=== PATIENT | female | born 1965 | race Caucasian/White ===

== ENCOUNTER 2019-12-20 08:38 | Emergency (ER) | payer OTHER, SELFPAY ==
[2019-12-20 08:49] VITALS: BP 133/84; PULSE 82; RESP 16; TEMP 36.6; O2SAT 99
--- NOTE | 2019-12-20 09:26 | ED.URI ---
HPI - URI/Sore Throat General Chief Complaint: Upper Respiratory Infection Stated Complaint: sore throat and ear ache Time Seen by Provider: 12/20/19 09:27 Source: patient and RN notes reviewed Mode of arrival: ambulatory Limitations: no limitations History of Present Illness HPI Narrative: 54-year-old female who presents to [facility] care with complaints of sore throat, ear pain, cough since . Patient denies any known fevers, chills or sweats, cough which is worse at night with some expectoration of phlegm.Patient states that she has some hoarseness, and states throat is sore especially with swallowing rated 7/10. Patient states that her left ear is sore has been taking Ibuprofen and Claritin for her symptoms. MD elicited complaint: cough, sore throat and other (ear discomfort) Onset (ago): day(s) (3) Consistency: progressively worsening Severity: moderate Pain scale (0-10): 7 Description of mucous: clear Able to tolerate fluids by mouth: Yes Exacerbating factors: swallowing Relieving factors: nothing Associated symptoms: voice changes, sore throat, cough and other (ear pain) Related Data Home Medications Medication Instructions Recorded Confirmed levothyroxine 75 mcg PO DAILY 12/20/19 12/20/19 pravastatin 40 mg PO DAILY 12/20/19 12/20/19 vortioxetine [Trintellix] 20 mg PO DAILY 12/20/19 12/20/19 Allergies Allergy/AdvReac Type Severity Reaction Status Date / Time No Known Allergies Allergy Verified 12/20/19 09:18 Review of Systems Review of Systems: Narrative: CONSTITUTIONAL: Denies fever, chills, or sweats. EYES: Denies visual changes, redness, or discharge. ENT: Denies rhinorrhea, congestion,positive sore throat, left ear otalgia, positive hoarseness. CARDIOVASCULAR: Denies chest pain, palpitations, or edema. RESPIRATORY: positive cough no dyspnea. GASTROINTESTINAL: Denies abdominal pain, nausea, vomiting, or diarrhea. GENITOURINARY: Denies dysuria or hematuria. SKIN: Denies rash or itching. MUSCULOSKELETAL: Denies back pain, joint pain, or myalgia. NEUROLOGIC: Denies headache, numbness, or weakness. PSYCHIATRIC: positive history anxiety or depression. All systems reviewed & are unremarkable except as noted in HPI and below [facility] Past Medical History Medical History (Updated 12/20/19 @ 10:42 by Marichuy Bartlett NP) Anxiety and depression Hyperlipidemia Hypothyroid Social History Social History (Updated 12/20/19 @ 10:43 by Marichuy Bartlett NP) Smoking status: Never smoker Living arrangements: with family Gender identity (if verbalized by the patient): Female Comments At time of signature, agree with nursing past medical, surgical, social and family history. There is no relevant family history pertinent to the presenting complaint Exam Narrative: Exam Narrative: GENERAL: Well-appearing, well-nourished, and in no acute distress. HEAD: Normocephalic, atraumatic. EYES: PERRLA and EOMI. ENT: Nares red, clear rhinorrhea no epistaxis. Mucous membranes moist.TM's normal with good light reflex, throat red with no lesions or exudate, tonsils red NECK: Supple.no lymphadenopathy CHEST: Clear to auscultation. No respiratory distress.SAO2 99% on room air. HEART: Regular rate and rhythm. No murmur heard. Normal peripheral pulses. ABDOMEN: Soft, nontender, nondistended, normal active bowel sounds. EXTREMITIES: Normal range of motion. No edema. SKIN: Warm, dry, no rash. NEURO: No focal deficits. Alert and oriented x3. Course Vital Signs Vital signs: Vital Signs Temperature 36.6 C 12/20/19 08:49 Pulse Rate 82 12/20/19 08:49 Respiratory Rate 16 12/20/19 08:49 Blood Pressure 133/84 12/20/19 08:49 Pulse Oximetry 99 12/20/19 08:49 Temperature 36.6 C 12/20/19 08:49 Pulse Rate 82 12/20/19 08:49 Respiratory Rate 16 12/20/19 08:49 Blood Pressure 133/84 12/20/19 08:49 Pulse Oximetry 99 12/20/19 08:49 MDM - URI/Sore Throat Differential Diagnosis Differential diagn
== END 2019-12-20 10:07 | disposition home or self-care (01) ==
PROVIDERS: Emergency Provider Registered Nurse; PCP Internal Medicine
DX: E78.5 Hyperlipidemia, unspecified (principal); E03.9 Hypothyroidism, unspecified; J02.0 Streptococcal pharyngitis
CPT/HCPCS: 87880; 99203; G0463

== ENCOUNTER 2020-03-29 08:12 | Emergency (ER) | payer OTHER, SELFPAY ==
[2020-03-29 08:18] VITALS: BP 149/87; PULSE 86; RESP 16; TEMP 36.8; O2SAT 100
--- NOTE | 2020-03-29 08:26 | ED.GENADULT ---
HPI - General Adult General Chief complaint: Eye Problems Stated complaint: left eye swollen Time Seen by Provider: 03/29/20 08:31 Source: patient Mode of arrival: ambulatory Limitations: no limitations History of Present Illness HPI narrative: 55-year-old female patient presents to the [facility] with complaints of left eye swelling that started yesterday. Patient states she was out walking her dog and thinks she got stung by something. Patient states it is slightly itchy. Patient noticed that the swelling to the left upper lid has worsened today. Denies any vision changes. Denies any swelling of the tongue lips or face. Denies any chest pain or shortness of breath. Related Data Home Medications Medication Instructions Recorded Confirmed cholecalciferol (vitamin D3) 50 mcg PO DAILY 03/29/20 03/29/20 [Vitamin D3] cyanocobalamin (vitamin B-12) 1,000 mcg PO DAILY 03/29/20 03/29/20 [Vitamin B-12] levothyroxine 50 mcg PO DAILY 03/29/20 03/29/20 pravastatin 40 mg PO DAILY 03/29/20 03/29/20 vortioxetine [Trintellix] 20 mg PO DAILY 03/29/20 03/29/20 Allergies Allergy/AdvReac Type Severity Reaction Status Date / Time No Known Allergies Allergy Verified 03/29/20 08:33 Review of Systems Review of Systems: Narrative: CONSTITUTIONAL: Denies fever, chills, or sweats. EYES: Denies visual changes, redness, or discharge. ENT: Denies rhinorrhea, congestion, sore throat, or otalgia. Positive swelling to left eyelid CARDIOVASCULAR: Denies chest pain, palpitations, or edema. RESPIRATORY: Denies cough or dyspnea. GASTROINTESTINAL: Denies abdominal pain, nausea, vomiting, or diarrhea. GENITOURINARY: Denies dysuria or hematuria. SKIN: Denies rash or itching. MUSCULOSKELETAL: Denies back pain, joint pain, or myalgia. NEUROLOGIC: Denies headache, numbness, or weakness. PSYCHIATRIC: Denies anxiety or depression. [facility] Past Medical History Medical History Anxiety and depression Hyperlipidemia Hypothyroid Social History Social History Smoking status: Never smoker Gender identity (if verbalized by the patient): Female Comments At the time of my signature I agree with nursing past medical history, surgical, social, and family history. There is no relevant family history pertinent to the presenting complaint. Exam Narrative: Exam Narrative: GENERAL: Well-appearing, well-nourished, and in no acute distress. HEAD: Normocephalic, atraumatic. EYES: PERRLA and EOM intact without limitation or complaint of pain, left upper eyelid soft tissue swelling ,no erythema, warmth or tenderness noted, no obvious deformity. There is a small punctate blanka noted to the corner of the eye right between the eyes and the eyebrow. No crusting or swelling.no tearing or draining.No photophobia. No nystagmus No FB or lesion on lid eversion. Corneas grossly clear, no obvious FB or hyphens/hypopyon. No injection to sclera. Lids and lashes clear. ENT: Nares clear, no rhinorrhea or epistaxis. Mucous membranes moist. NECK: Supple. No lymphadenopathy CHEST: Clear to auscultation. No respiratory distress. HEART: Regular rate and rhythm. No murmur heard. Normal peripheral pulses. ABDOMEN: Soft, nontender, nondistended, normal active bowel sounds. EXTREMITIES: Normal range of motion. No edema. SKIN: Warm, dry, no rash. NEURO: No focal deficits. Alert and oriented x3. Course Vital Signs Vital signs: Vital Signs Temperature 36.8 C 03/29/20 08:18 Pulse Rate 86 03/29/20 08:18 Respiratory Rate 16 03/29/20 08:18 Blood Pressure 149/87 H 03/29/20 08:18 Pulse Oximetry 100 03/29/20 08:18 Temperature 36.8 C 03/29/20 08:18 Pulse Rate 86 03/29/20 08:18 Respiratory Rate 16 03/29/20 08:18 Blood Pressure 149/87 H 03/29/20 08:18 Pulse Oximetry 100 03/29/20 08:18 Vital signs reviewed. The patient has been informed that th
== END 2020-03-29 08:45 | disposition home or self-care (01) ==
PROVIDERS: Emergency Provider Nurse Practitioner Family; PCP Internal Medicine
DX: H02.844 Edema of left upper eyelid (principal); T63.484A Toxic effect of venom of other arthropod, undetermined, initial encounter; E78.5 Hyperlipidemia, unspecified; E03.9 Hypothyroidism, unspecified
CPT/HCPCS: 99213; G0463

== ENCOUNTER 2022-05-23 08:37 | Emergency (ER) | payer OTHER, SELFPAY ==
--- NOTE | 2022-05-23 08:39 | ED.ABDPAIN ---
HPI - Abdominal Pain General Chief Complaint: Urogenital-Female Stated Complaint: Abdominal Pain Time Seen by Provider: 05/23/22 08:39 Source: patient Mode of arrival: ambulatory Limitations: no limitations History of Present Illness HPI narrative: Ms. Mejía is a 57-year-old female patient presenting to the clinic today with complaints of abdominal pain/left-sided flank x1week. She reports she had some pain with urination that started yesterday. She denies any fever or chills. She feels a pressure in her bladder with left flank pain radiating into the left lower abdomen. Related Data Home Medications Medication Instructions Recorded Confirmed cholecalciferol (vitamin D3) 50 50 mcg PO DAILY 03/29/20 05/23/22 mcg (2,000 unit) tablet (Vitamin D3) cyanocobalamin (vitamin B-12) 1,000 mcg PO DAILY 03/29/20 05/23/22 1,000 mcg tablet (Vitamin B-12) levothyroxine 50 mcg tablet 50 mcg PO DAILY 03/29/20 05/23/22 pravastatin 40 mg tablet 40 mg PO DAILY 03/29/20 05/23/22 vortioxetine 20 mg tablet 20 mg PO DAILY 03/29/20 05/23/22 (Trintellix) Allergies Allergy/AdvReac Type Severity Reaction Status Date / Time No Known Allergies Allergy Verified 05/23/22 08:48 Review of Systems Review of Systems: Pertinent positives per HPI. Patient denies any fever, chills, rash, headache, visual changes, dizziness, cough, runny nose, sore throat, shortness of breath, chest pain, palpitations, nausea, vomiting, diarrhea, constipation, or any urinary issues. JANE Past Medical History Medical History (Updated 05/23/22 @ 09:00 by Jay Pruitt APRN) Anxiety and depression Hyperlipidemia Hypothyroid Social History Social History Smoking status: Never smoker Gender identity (if verbalized by the patient): Female Comments At the time of my signature, I reviewed and agree with the nursing past medical, surgical, social, and family history. There is no relevant family history pertinent to the patient complaint. Exam Narrative: General: Well-developed, well nourished, in no apparent distress. Head: Normocephalic, atraumatic. Cardio: Regular rate and rhythm, s1 and s2 normal, no murmur appreciated. Resp: Clear to auscultation bilaterally, no rhonchi, rales, wheezing or rubs. Abdomen: Soft, pliable, bowel sounds present in all quadrants, mild tenderness to palpation over the suprapubic area, no organomegly, no CVAT tenderness. Course Course Emergency Course: Portions of this record may have been created with voice recognition software. Level of Care: Express Care Visit Vital Signs Vital signs: Vital signs reviewed MDM - Abdominal Pain MDM Narrative Medical decision making narrative: At the time of visit patient is resting comfortably on exam table. She has left-sided flank pain with suprapubic tenderness. Urine shows trace of leukocytes. No blood. I suspect the patient likely has a bladder infection and will place her on a prescription for Macrobid. I will also give a prescription for some Pyridium for any bladder spasms that she is having bladder pressure and pain. Supportive measures were discussed with the patient she voiced understanding of discharge instructions and agrees to the treatment plan. Differential Diagnosis Differential diagnosis: Likely abdominal pain and other (Acute cystitis, nephrolithiasis, ureteral lithiasis, diverticulitis) Discharge Plan Discharge Clinical Impression: Acute cystitis Qualifiers: Hematuria presence: without hematuria Qualified Code(s): N30.00 - Acute cystitis without hematuria Patient Disposition: Home, Self-Care Condition: Stable Instructions: Antibiotic Form, Urinary Tract Infection in Women (ED) Additional Instructions: U/A shows trace of leukocytes. Will send for culture. Macrobid and pyridium as prescribed. Increase fluids and stay well hydrated Wipe front to back. May use w
[2022-05-23 08:42] VITALS: BP 167/81; PULSE 109; RESP 20; TEMP 36.8; O2SAT 100
== END 2022-05-23 09:05 | disposition home or self-care (01) ==
PROVIDERS: Emergency Provider Nurse Practitioner Family; PCP Internal Medicine
DX: N30.00 Acute cystitis without hematuria (principal); E78.5 Hyperlipidemia, unspecified; E03.9 Hypothyroidism, unspecified; F32.A Depression, unspecified
CPT/HCPCS: 81003; 87086; 87088; 99213; G0463